=== PATIENT | male | born 1985 | race Caucasian/White ===

== ENCOUNTER 2018-06-23 04:10 | Emergency (ER) | payer BC ==
[~2018-06-23] VITALS: Wt 75.0 kg
[2018-06-23] MEDS ORDERED: HYDROCODONE/APAP (10/325) TAB PO ONE (05:00)
[2018-06-23] MEDS ORDERED: HYDR-3980 PO (06:30)
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
[2018-06-23 07:13] VITALS: BP 132/65; PULSE 96; RESP 19
== END 2018-06-23 07:14 | disposition home or self-care (01) ==
LOC: FTE 04:10
DX: S20.212A Contusion of left front wall of thorax, initial encounter (principal); F17.210 Nicotine dependence, cigarettes, uncomplicated; V89.2XXA Person injured in unspecified motor-vehicle accident, traffic, initial encounter
CPT/HCPCS: 71100